=== PATIENT | male | born 1960 | race Caucasian/White ===

== ENCOUNTER 2020-09-12 19:43 | Day surgery (SDC) | payer OTHER ==
[2020-09-12 20:07] LABS: BASOPHILS # (AUTO) 0.1 10^3/uL (0.0-0.1); BASOPHILS % (AUTO) 0.9 %; EOSINOPHILS # (AUTO) 0.4 10^3/uL (0.0-0.7); EOSINOPHILS % (AUTO) 5.9 %; HGB - HEMOGLOBIN 15.8 g/dL (14.0-18.0); LYMPHOCYTES # (AUTO) 2.6 10^3/uL (1.5-3.5); LYMPHOCYTES % (AUTO) 34.4 %; MEAN CORPUSCULAR HEMOGLOBIN 30.4 pg (27.0-31.0); MEAN CORPUSCULAR HGB CONC 33.5 g/dL (32.0-36.0); MEAN CORPUSCULAR VOLUME 90.9 fL (80.0-94.0); MONOCYTES # (AUTO) 0.5 10^3/uL (0.0-1.0); NEUTROPHILS # (AUTO) 3.9 10^3/uL (1.5-6.6); NEUTROPHILS % (AUTO) 51.5 %; PLT - PLATELET COUNT 202 10^3/uL (130-450); RED BLOOD COUNT 5.19 10^6/uL (4.70-6.10); RED CELL DISTRIBUTION WIDTH 12.6 % (12.0-15.0); WHITE BLOOD COUNT 7.5 x10^3/uL (4.8-10.8)
[2020-09-12 20:21] LABS: ALBUMIN 4.4 g/dL (3.2-5.5); ALBUMIN/GLOBULIN RATIO 1.7 (1.0-2.2); BILIRUBIN,TOTAL 1.5 mg/dL (0.2-1.0); CALCIUM 8.9 mg/dL (8.5-10.3)
[2020-09-12] MEDS ORDERED: GLUCAGON 1 MG/ML VIAL IVP STA (20:29)
--- NOTE | 2020-09-12 20:31 | ED Physician Documentation ---
History of Present Illness - Stated complaint Stated Complaint: ABD PX - Chief complaint Chief Complaint: Heent - History obtained from History obtained from: Patient - Additonal information Additional information: 59-year-old gentleman with history of esophageal food impaction x1 in his 30s with what sounds like from his description probably chronic reflux and some scarring at the GE junction. He is to be on Prilosec but has not taken it in many years. He was eating chicken and vegetables tonight and felt like it got stuck low down under the sternum and had severe pain for a time which is now better and only moderate. He had trouble with his secretions which he feels like might be getting better. Review of Systems Ten Systems: 10 systems reviewed and negative Constitutional: reports: Reviewed and negative Eyes: reports: Reviewed and negative Ears: reports: Reviewed and negative Nose: reports: Reviewed and negative Throat: reports: Reviewed and negative Cardiac: reports: Reviewed and negative PD PAST MEDICAL HISTORY - Allergies Allergies/Adverse Reactions: Allergies Allergy/AdvReac Type Severity Reaction Status Date / Time No Known Drug Allergies Allergy Verified 09/12/20 19:49 - Social History Does the pt smoke?: No Smoking Status: Never smoker PD ED PE NORMAL - Vitals Vital signs reviewed: Yes - General General: Alert and oriented X 3, No acute distress, Other (He has a spit bag with spit in it in front of him. But not actively spitting into it.) - HEENT HEENT: PERRL, EOMI - Neck Neck: Supple, no meningeal sign, No bony TTP - Cardiac Cardiac: RRR, No murmur - Respiratory Respiratory: No respiratory distress, Clear bilaterally - Abdomen Abdomen: Non tender - Extremities Extremities: No edema, No calf tenderness / cord - Neuro Neuro: Alert and oriented X 3, Normal speech - Psych Psych: Normal mood, Normal affect Results - Vitals Vitals: Vital Signs - 24 hr 09/12/20 09/12/20 09/12/20 19:45 19:56 21:49 Temperature 36.5 C 36.5 C Heart Rate 66 66 92 Respiratory 22 22 18 Rate Blood Pressure 143/102 H 143/102 H 139/85 H O2 Saturation 100 100 99 Oxygen O2 Source Room air - EKG (time done) 2033 Rate: Rate (enter#) (68) Rhythm: NSR [place]: Normal Intervals: Normal MS Ischemia: Non specific changes (Minimal lateral J-point elevation not consistent with ischemia) - Labs Labs: Laboratory Tests 09/12/20 09/12/20 09/12/20 20:00 20:00 22:16 WBC 7.5 RBC 5.19 Hgb 15.8 Hct 47.2 MCV 90.9 MCH 30.4 MCHC 33.5 RDW 12.6 Plt Count 202 MPV 11.0 Neut # (Auto) 3.9 Lymph # (Auto) 2.6 White # (Auto) 0.5 Eos # (Auto) 0.4 Baso # (Auto) 0.1 Absolute Nucleated RBC 0.00 Nucleated RBC % 0.0 Sodium 140 Potassium 4.1 Chloride 104 Carbon Dioxide 25 Anion Gap 11.0 BUN 15 Creatinine 1.0 Estimated GFR (MDRD) 77 L Glucose 125 H Calcium 8.9 Total Bilirubin 1.5 H AST 34 ALT 47 Alkaline Phosphatase 65 Total Protein 7.0 Albumin 4.4 Globulin 2.6 Albumin/Globulin Ratio 1.7 Lipase 32 Urine Color YELLOW Urine Clarity CLEAR Urine pH 6.0 Ur Specific [place] 1.020 Urine Protein NEGATIVE Urine Glucose (UA) 100 H Urine Ketones TRACE Urine Occult Blood NEGATIVE Urine Nitrite NEGATIVE Urine Bilirubin NEGATIVE Urine Urobilinogen 0.2 (NORMAL) Ur Leukocyte Esterase NEGATIVE Ur Microscopic Review NOT INDICATED Urine Culture Comments NOT INDICATED PD MEDICAL DECISION MAKING - ED course ED course: 59yo Male with recurrent esophageal impaction. Can't tolerate PO. Tried Glucagon, no relief, then nitro, still can't PO. Dr Izaguirre will take to OR for EGD. Departure - Departure Disposition: ED Transfer to [facility] Clinical Impression: Foreign body in esophagus Qualifiers: Encounter type: initial encounter Qualified Code(s): T18.108A - Unspecified foreign body in esophagus causing other injury, initial encounter Condition: Stable Discharge Date/Time: 09/12/20 22:24
[2020-09-12] MEDS ORDERED: NITROGLYCERIN SL 0.4 MG TABLET SL STA (21:17)
--- NOTE | 2020-09-12 22:16 | CONSULTATION NOTE ---
Referring Provider Name of Referring Provider:: Antonino Ann Consult Date: 09/12/20 Chief Complaint - Chief Complaint Chief Complaint: Dysphagia with retained foreign esophageal body/food bolus History of Present Illness - Admitted From Admitted From:: Emergency room - History Obtained From Records Reviewed: ER and EMR History obtained from: Patient Exam Limitations: None - History of Present Illness HPI Comment/Other: 59-year-old male with prior history of esophageal stricture secondary to reported reflux (gastroesophageal) and known reported prior history of food bolus for which endoscopic intervention was indicated who presents with several hour of dysphagia nausea and associated emesis with chest discomfort since dinner concerning for retained food bolus. Negative for acute coronary syndrome by ER work-up. Surgical consult called for evaluation. No prior external beam radiation. Non-smoker. History of social alcohol use. Routine colonoscopic evaluation for screening grossly normal by report. No recent upper endoscopic evaluation. Patient has discontinued his proton pump inhibition. History - Past Medical History Cardiovascular: reports: None Respiratory: reports: None Neuro: reports: None Endocrine/Autoimmune: reports: None GI: reports: GERD : reports: None HEENT: reports: None Psych: reports: None Musculoskeletal: reports: None Meds/Allgy - Allergies Allergies/Adverse Reactions: Allergies Allergy/AdvReac Type Severity Reaction Status Date / Time No Known Drug Allergies Allergy Verified 09/12/20 19:49 Review of Systems - Gastrointestinal Gastrointestinal: reports: Nausea, Vomiting, Other (dysphagia) - All Other Systems All Other Systems: reports: Reviewed and negative Exam - Vital Signs Vital Signs: Vital Signs x48h Temp Pulse Resp BP Pulse Ox 09/12/20 19:56 36.5 C 66 22 143/102 H 100 09/12/20 19:45 36.5 C 66 22 143/102 H 100 - Physical Exam General Appearance: positive: No acute distress, Alert, Mild distress Eyes Bilateral: positive: Normal inspection, PERRL, EOMI ENT: positive: ENT inspection nml, Pharynx nml, No signs of dehydration Neck: positive: Nml inspection Respiratory: positive: Chest non-tender Cardiovascular: positive: Regular rate & rhythm Abdomen: positive: Non-tender, No organomegaly, No distention. negative: Tenderness, Guarding, Rebound Skin: positive: Color nml Extremities: positive: Non-tender, Full ROM, Nml appearance Neurologic/Psychiatric: positive: Oriented x3, CN's nml (2-12), Motor nml Conclusion and Plan - Lab Results Laboratory Results 09/12/20 20:00: Sodium 140, Potassium 4.1, Chloride 104, Carbon Dioxide 25, Anion Gap 11.0, BUN 15, Creatinine 1.0, Estimated GFR (MDRD) 77 L, Glucose 125 H, Calcium 8.9, Total Bilirubin 1.5 H, AST 34, ALT 47, Alkaline Phosphatase 65, Total Protein 7.0, Albumin 4.4, Globulin 2.6, Albumin/Globulin Ratio 1.7, Lipase 32 09/12/20 20:00: WBC 7.5, RBC 5.19, Hgb 15.8, Hct 47.2, MCV 90.9, MCH 30.4, MCHC 33.5, RDW 12.6, Plt Count 202, MPV 11.0, Neut # (Auto) 3.9, Lymph # (Auto) 2.6, [place] # (Auto) 0.5, Eos # (Auto) 0.4, Baso # (Auto) 0.1, Absolute Nucleated RBC 0.00, Nucleated RBC % 0.0 - Diagnostic Imaging Results Diagnostic Imaging Results: positive: Prelim report reviewed - Diagnosis Diagnosis: 1. Gastroesophageal reflux disease. 2. Retained foreign body/food bolus esophageal. 3. Likely esophageal stricture. 4. Dysphagia - Plan Plan: 1. Plan upper endoscopy with attempt to evaluate and treat food bolus; risk and benefits discussed. 2. Postsurgical observation with evaluation 3. IV fluids and antiemetics Please note that voice recognition software was used to transcribe this note and inadvertent errors might persist in spite of review and editing. I am obliged to you for your attention. I am thankful to you for allowing me to participate with you in this care of this patient.
--- NOTE | 2020-09-12 22:21 | ANESTHESIA ---
Pre-Anesthesia VS, & Labs - Diagnosis Food bolus - Procedure EGD Vital Signs: Temp Pulse Resp BP Pulse Ox 36.5 C 92 18 139/85 H 99 09/12/20 19:56 09/12/20 21:49 09/12/20 21:49 09/12/20 21:49 09/12/20 21:49 Height: 6 ft Weight (kg): 90.718 kg Body Mass Index: 27.1 BMI Classification: Overweight - NPO Other (1800) - Lab Results Current Lab Results: Laboratory Tests 09/12/20 20:00: Sodium 140, Potassium 4.1, Chloride 104, Carbon Dioxide 25, Anion Gap 11.0, BUN 15, Creatinine 1.0, Estimated GFR (MDRD) 77 L, Glucose 125 H , Calcium 8.9, Total Bilirubin 1.5 H, AST 34, ALT 47, Alkaline Phosphatase 65, Total Protein 7.0, Albumin 4.4, Globulin 2.6, Albumin/Globulin Ratio 1.7, Lipase 32 09/12/20 20:00: WBC 7.5, RBC 5.19, Hgb 15.8, Hct 47.2, MCV 90.9, MCH 30.4, MCHC 33.5, RDW 12.6, Plt Count 202, MPV 11.0, Neut # (Auto) 3.9, Lymph # (Auto) 2.6, [place] # (Auto) 0.5, Eos # (Auto) 0.4, Baso # (Auto) 0.1, Absolute Nucleated RBC 0.00, Nucleated RBC % 0.0 Fish Bones: 09/12/20 20:00 09/12/20 20:00 Home Medications and Allergies Allergies/Adverse Reactions: Allergies Allergy/AdvReac Type Severity Reaction Status Date / Time No Known Drug Allergies Allergy Verified 09/12/20 19:49 Anes History & Medical History - Anesthetic History Anesthesia Complications: reports: No previous complications Family history of Anesthesia Complications: Denies Family history of Malignant Hyperthermia: Denies - Medical History Cardiovascular: reports: None Pulmonary: reports: None Gastrointestinal: reports: GERD (States history of. None at present. Had an episode of food bolus years ago) Urinary: reports: None Neuro: reports: None Musculoskeletal: reports: None Endocrine/Autoimmune: reports: None Smoking Status: Never smoker Psychosocial: reports: No issues indicated Exam General: Alert, Oriented x3, Cooperative, No acute distress Dental: WNL (Very large teeth) Mouth Opening: Greater than 4 Fingerbreadths Neck Mobility: Normal Mallampati classification: I Thyromental Distance: 4-6 cm Respiratory: Lungs clear Cardiovascular: Regular rate Plan Anesthesia Type: MAC (Surgeon stated will do a quick push of food bolus) Consent for Procedure(s) Verified and Reviewed: Yes Code Status: Attempt Resuscitation ASA classification: 1-Healthy patient Is this case an emergency?: Yes (Discussed anesthesia. consent signed)
[2020-09-12 22:22] LABS: BILIRUBIN,URINE NEGATIVE (NEGATIVE); GLUCOSE, URINE (UA) 100 mg/dL (NEGATIVE); KETONES,URINE (UA) TRACE mg/dL (NEGATIVE); LEUKOCYTE ESTERASE, URINE NEGATIVE (NEGATIVE); NITRITE,URINE NEGATIVE (NEGATIVE); OCCULT BLOOD,URINE NEGATIVE (NEGATIVE); PROTEIN,URINE NEGATIVE (NEGATIVE); UROBILINOGEN,URINE 0.2 (NORMAL) E.U./dL (NORMAL)
[2020-09-12 22:25] LABS: CLARITY,URINE CLEAR (CLEAR)
[2020-09-12] MEDS ORDERED: LACTATED RINGERS 1,000 ML IV ONE (23:09)
[2020-09-12] MEDS ORDERED: fentaNYL 100 MCG/2 ML VIAL IVP PRN (23:14)
[2020-09-12] MEDS ORDERED: NALOXONE 0.4 MG/ML VIAL IVP PRN (23:14)
[2020-09-12] MEDS ORDERED: ONDANSETRON 4 MG/2 ML VIAL IVP PRN ×2 (23:14→23:17)
[2020-09-12] MEDS ORDERED: MORPHINE 2 MG/ML CARPUJECT IVP PRN (23:14)
[2020-09-12] MEDS ORDERED: HYDROmorphone 0.5 MG/0.5 ML SYRINGE IVP PRN (23:14)
[2020-09-12] MEDS ORDERED: ATROPINE ABBOJECT 1 MG/10 ML SYRINGE IVP PRN (23:14)
[2020-09-12] MEDS ORDERED: METOCLOPRAMIDE 10 MG/2 ML VIAL IVP PRN (23:14)
[2020-09-12] MEDS ORDERED: ePHEDrine 50 MG/ML VIAL IVP PRN (23:14)
--- NOTE | 2020-09-12 23:15 | PROVIDER PROGRESS NOTE ---
Progress Note Patient status post upper endoscopy emergent for food bolus with the following findings: 1. Diffuse esophagitis with extensive partially digested white and vegetable matter the former consistent with chicken as per report extending up through to the midesophagus requiring careful management. 2. Secondary to the friable nature of the retained food bolus we avoided retrieving and attempted to push through however there is a distal gastroesophageal stricture. 3. The material at the GE junction was densely fibrous and impacted 4. We proceeded to do balloon dilation first 5 through 8 mm after which the scope could be passed with large food bolus noted within the gastric fundus consistent with successful traversal of esophageal foreign body through to the stomach. 5. Extensive irrigation of this area was without any concern for underlying malignancy 6. Duodenoscopy was grossly normal with in D2 and D3 which was randomly biops ied 7. D1 was biopsied for an area of associated thickening however this could be simple ampullary tissue; patient would require repeat endoscopy and imaging as well. 8. Random gastric biopsy taken 9. We proceeded to dilate 12 mm through 15 mm without any complication no bleeding at the gastroesophageal junction which was also randomly biopsied 10. Mid esophageal random biopsy was performed, multiple pictures taken, no further retained food bolus/body noted within the entirety of the esophagus with no resultant aspiration or other complication. Plan going forward is as follows following monitored anesthesia care and above listed procedure: 1. PPI twice daily 2. Liquid diet 3. Monitoring 4. Postprocedural x-ray.
--- NOTE | 2020-09-12 23:15 | ANESTHESIA POST OP EVALUATION ---
Anesthesia Post Eval - Post Anesthesia Eval Vitals: Last Vital Signs Temp 37 C 09/12/20 23:07 Pulse 103 H 09/12/20 23:07 Resp 16 09/12/20 23:07 BP 134/95 H 09/12/20 23:07 Pulse Ox 98 09/12/20 23:07 CV Function Including HR & BP: positive: Stable Pain Control: positive: Satisfactory Nausea & Vomiting: positive: Negative Mental Status: positive: Baseline Respiratory Status: Airway Patent Hydration Status: Satisfactory Anesthesia Complications: positive: None (Awake, alert and pleased with care)
[2020-09-12] MEDS ORDERED: LACTATED RINGERS 1,000 ML IV SCH ×2 (23:45)
[2020-09-13] MEDS: METOCLOPRAMIDE 10 MG/2 ML VIAL IVP SCH ×2 (00:41→05:42)
[2020-09-13 05:56] LABS: BASOPHILS # (AUTO) 0.1 10^3/uL (0.0-0.1); BASOPHILS % (AUTO) 0.6 %; EOSINOPHILS # (AUTO) 0.1 10^3/uL (0.0-0.7); HGB - HEMOGLOBIN 14.5 g/dL (14.0-18.0); LYMPHOCYTES # (AUTO) 2.4 10^3/uL (1.5-3.5); LYMPHOCYTES % (AUTO) 26.1 %; MEAN CORPUSCULAR HEMOGLOBIN 30.4 pg (27.0-31.0); MEAN CORPUSCULAR HGB CONC 33.6 g/dL (32.0-36.0); MEAN CORPUSCULAR VOLUME 90.4 fL (80.0-94.0); MEAN PLATELET VOLUME 11.4 fL (7.4-11.4); MONOCYTES # (AUTO) 0.6 10^3/uL (0.0-1.0); MONOCYTES % (AUTO) 6.9 %; NEUTROPHILS # (AUTO) 6.1 10^3/uL (1.5-6.6); NEUTROPHILS % (AUTO) 65.1 %; PLT - PLATELET COUNT 182 10^3/uL (130-450); RED BLOOD COUNT 4.77 10^6/uL (4.70-6.10); RED CELL DISTRIBUTION WIDTH 12.7 % (12.0-15.0); WHITE BLOOD COUNT 9.3 x10^3/uL (4.8-10.8)
[2020-09-13 05:59] LABS: ALBUMIN 3.9 g/dL (3.2-5.5); ALBUMIN/GLOBULIN RATIO 1.6 (1.0-2.2); BILIRUBIN,TOTAL 1.5 mg/dL (0.2-1.0); CALCIUM 8.9 mg/dL (8.5-10.3); CREATININE 0.8 mg/dL (0.6-1.2); TOTAL PROTEIN 6.3 g/dL (6.7-8.2)
[2020-09-13 08:02] VITALS: BP 131/90
--- NOTE | 2020-09-13 08:31 | Discharge Plan ---
Discharge Plan Problem Reviewed?: Yes Disposition: Home, Self Care Condition: Good Prescriptions: Pantoprazole [Protonix] 40 mg PO BID 30 Days #60 tablet Diet: Soft Activity Restrictions: No Restrictions Shower Restrictions: No Driving Restrictions: No Instruction Topics: Dysphagia Tx, GERD, GERD Lifestyle Changes, ED Foreign Body Esophageal Rslv Plan of Treatment: 1. Dysphagia/soft diet 2. Follow-up pathology 3. Continue with proton pump inhibition Assessment: Subjective Feels much improved since foreign body removal. Bowel movement. No nausea no vomiting Objective AF HD Acceptable General Appearance: positive: No acute distress Eyes Bilateral: positive: Normal inspection ENT: positive: ENT inspection nml Neck: positive: Nml inspection Respiratory: positive: Chest non-tender, No respiratory distress, Breath sounds nml. negative: Wheezes, Rales, Rhonchi Cardiovascular: positive: Regular rate & rhythm Abdomen: positive: No distention, Other. negative: Guarding, Rebound Extremities: positive: Non-tender, Full ROM, Nml appearance Neurologic/Psychiatric: positive: Oriented x3, CN's nml (2-12) Impression/Plan Postop day #1/0, hospital day #2 status post EGD with foreign body removal. Esophageal stricture dilated pneumatically and multiply biopsied. Doing well this AM. Thank going forward is as follows 1. PPI/GERD therapy 2. Await pathology/we will discuss pathology and any future necessary interventions 3. Interval EGD in 3 months to reassess stricture and decide if further dilatation is indicated 4. Dietary modification with soft diet in the interim No Smoking: If you smoke, Please STOP! Call for help. Follow-up with: Jovanny Izaguirre MD [Provider Admit Priv/Credential] -
[2020-09-13] MEDS ORDERED: PANTOPRAZOLE 40 MG TABLET PO SCH (09:00)
--- NOTE | 2020-09-13 09:02 | XRAY Report ---
PROCEDURE: Chest 1 View X-Ray INDICATIONS: post esophageal dilation TECHNIQUE: One view of the chest was acquired. COMPARISON: 09/12/2020 FINDINGS: Surgical changes and devices: None. Lungs and pleura: No pleural effusions or pneumothorax. Lungs are clear. Mediastinum: Mediastinal contours appear normal. Heart size is normal. Bones and chest wall: No suspicious bony lesions. Overlying soft tissues appear unremarkable. IMPRESSION: No acute cardiopulmonary disease process. If there is continued clinical concern for pathology relate d to esophageal dilatation procedure, CT scan of the chest should be considered for further evaluatio n. Reviewed by: Camryn Owens MD, PhD on 09/13/2020 9:00 AM [facility] Approved by: Camryn Owens MD, PhD on 09/13/2020 9:00 AM PST Station ID: [id number]
--- NOTE | 2020-09-13 17:56 | XRAY Report ---
PROCEDURE: Chest 1 View X-Ray INDICATIONS: chest pain TECHNIQUE: One view of the chest was acquired. COMPARISON: None FINDINGS: Surgical changes and devices: None. Lungs and pleura: No pleural effusions or pneumothorax. Lungs are clear. Mediastinum: Mediastinal contours appear normal. Heart size is normal. Bones and chest wall: No suspicious bony lesions. Overlying soft tissues appear unremarkable. IMPRESSION: No acute cardiopulmonary disease process. Reviewed by: Camryn Owens MD, PhD on 09/13/2020 5:54 PM [facility] Approved by: Camryn Owens MD, PhD on 09/13/2020 5:54 PM [facility] Station ID: [id number]
== END 2020-09-13 09:48 | disposition home or self-care (01) ==
LOC: ED 19:43 → SDS 22:00 → MS2 23:34 → SDS 09-13 09:48
PROVIDERS: ATTEND Surgery
PROC: 0D748ZZ Dilation of Esophagogastric Junction, Via Natural or Artificial Opening Endoscopic (ICD-10-PCS; 2020-09-12)
PROC: 0DB98ZX Excision of Duodenum, Via Natural or Artificial Opening Endoscopic, Diagnostic (ICD-10-PCS; 2020-09-12)
PROC: 0DB68ZX Excision of Stomach, Via Natural or Artificial Opening Endoscopic, Diagnostic (ICD-10-PCS; 2020-09-12)
PROC: 0DB28ZX Excision of Middle Esophagus, Via Natural or Artificial Opening Endoscopic, Diagnostic (ICD-10-PCS; 2020-09-12)
PROC: 0DB48ZX Excision of Esophagogastric Junction, Via Natural or Artificial Opening Endoscopic, Diagnostic (ICD-10-PCS; 2020-09-12)
PROC: 0DC48ZZ Extirpation of Matter from Esophagogastric Junction, Via Natural or Artificial Opening Endoscopic (ICD-10-PCS; principal; 2020-09-12 22:30)
DX: T18.128A Food in esophagus causing other injury, initial encounter (principal); K20.90 Esophagitis, unspecified without bleeding; K22.2 Esophageal obstruction; K21.9 Gastro-esophageal reflux disease without esophagitis
CPT/HCPCS: 36415; 43239; 43247; 43249; 71045; 80053; 81003; 83690; 85025; 93005; 96374; 99285; A9270; J2765; J7120; 81001; 87086